=== PATIENT | female | born 1965 | race Caucasian/White ===

== ENCOUNTER 2022-09-16 04:55 | Inpatient (IN) | payer OTHER ==
[~2022-09-16] VITALS: Ht 162.6 cm; Wt 88.9 kg
[2022-09-16] MEDS ORDERED: MIDAZOLAM HCL 2 MG/2 ML VIAL (VERSED) ONE ×2 (07:30→11:39)
[2022-09-16] MEDS ORDERED: ONDANSETRON HCL 4 MG/2 ML VIAL ONE (07:30)
[2022-09-16] MEDS ORDERED: DESFLURANE 15 MIN GAS INH ONE (07:30)
[2022-09-16] MEDS ORDERED: DEXAMETHASONE SOD PHOSPHATE 4 MG/ML VIAL ONE (07:30)
[2022-09-16] MEDS ORDERED: TRANEXAMIC ACID 1,000 MG/10 ML VIAL ONE (07:30)
[2022-09-16] MEDS ORDERED: BUPIVACAINE /EPINEPHRINE/PF 0.25% 30 ML VIAL ONE (07:30)
[2022-09-16] MEDS ORDERED: VANCOMYCIN HCL 1000 MG/VIAL IV ONE (07:30)
[2022-09-16] MEDS ORDERED: NS IRRIG SOLN 1000 ML IR ONE (07:30)
[2022-09-16] MEDS ORDERED: PROPOFOL 200MG/ 20ML VIAL (DIPRIVAN) IV ONE (07:30)
[2022-09-16] MEDS ORDERED: SUGAMMADEX SODIUM 200 MG/2 ML VIAL IV ONE (07:30)
[2022-09-16] MEDS ORDERED: KETOROLAC TROMETHAMINE 30 MG VIAL ONE (07:30)
[2022-09-16] MEDS ORDERED: ROCURONIUM BROMIDE 10 MG/ML (ZEMURON) ONE (07:30)
[2022-09-16] MEDS ORDERED: fentaNYL CITRATE/PF 100 MCG/2 ML AMP ONE (07:30)
[2022-09-16] MEDS ORDERED: LIDOCAINE 1% 10 MG/ML, 20 ML MDV ONE (07:30)
[2022-09-16] MEDS ORDERED: LR 1,000 ML IV.SOLN IV ONE (07:30)
[2022-09-16] MEDS ORDERED: BUPIVACAINE /PF 0.25% 30 ML VIAL INJ ONE (07:30)
[2022-09-16] MEDS ORDERED: MORPHINE SULFATE 10MG/10ML PF AMP ONE (07:30)
[2022-09-16] MEDS ORDERED: LABETALOL 100 MG/ 20ML VIAL IVP PRN (09:00)
[2022-09-16] MEDS ORDERED: MIDAZOLAM HCL 2 MG/2 ML VIAL (VERSED) IVP PRN (09:00)
[2022-09-16] MEDS ORDERED: HYDROmorphone 1 MG/ML INJ. CARTRIDGE IVP PRN ×4 (09:00→11:00)
[2022-09-16] MEDS ORDERED: MEPERIDINE HCL/PF 25 MG/ML DISP.SYRIN IVP PRN (09:00)
[2022-09-16] MEDS ORDERED: hydrALAZINE HCL 20 MG/ML VIAL IVP PRN (09:00)
[2022-09-16] MEDS ORDERED: METOCLOPRAMIDE HCL 10 MG/2 ML VIAL IVP PRN ×2 (09:00→10:15)
[2022-09-16] MEDS ORDERED: LR 1,000 ML IV SCH (09:00)
[2022-09-16] MEDS ORDERED: ACETAMINOPHEN I.V. 1000 MG 100 ML IV ONE (09:11)
[2022-09-16] MEDS ORDERED: LACTULOSE 20 GM/30 ML UDC PO PRN (10:15)
[2022-09-16] MEDS ORDERED: BISACODYL 10 MG/SUPPOSITORY RC PRN (10:15)
[2022-09-16] MEDS ORDERED: NALOXONE HCL 0.4 MG/ML AMP (NARCAN) IVP PRN ×3 (10:15)
[2022-09-16] MEDS ORDERED: DIPHENHYDRAMINE HCL 25 MG CAPSULE PO PRN (10:15)
[2022-09-16] MEDS: HYDROmorphone 1 MG/ML INJ. CARTRIDGE IVP PRN ×6 (10:28→21:50)
[2022-09-16] MEDS ORDERED: HYDROmorphone 1 MG/ML INJ. CARTRIDGE ONE ×2 (10:29→10:56)
[2022-09-16] MEDS ORDERED: traMADol HCL HCL 50 MG TABLET (ULTRAM) PO PRN (11:00)
[2022-09-16] MEDS ORDERED: oxyCODONE HCL 5 MG TABLET PO PRN (11:00)
[2022-09-16] MEDS ORDERED: LORATADINE 10 MG TABLET PO PRN (11:00)
[2022-09-16] MEDS ORDERED: NAPR-688 PO (11:11)
[2022-09-16] MEDS ORDERED: LEVO112T5 PO (11:11)
[2022-09-16] MEDS ORDERED: OMEP20CA15 PO (11:11)
[2022-09-16] MEDS ORDERED: ZOLM2.5T7 PO (11:11)
[2022-09-16] MEDS ORDERED: LOVA10TA55 PO (11:11)
[2022-09-16] MEDS ORDERED: ZOLMITRIPTAN 2.5 MG PO SCH (11:30)
[2022-09-16] MEDS ORDERED: ONDANSETRON HCL 4 MG/2 ML VIAL IVP PRN (11:45)
[2022-09-16] MEDS ORDERED: ZOLMITRIPTAN 2.5 MG PO PRN (12:00)
--- NOTE | 2022-09-16 12:20 | NUR ---
OPENING NOTE RECEIVED PT FROM PACU NURSE. PT CONT C/O PAIN. PAIN MEDICATION WAS GIVEN RIGHT BEFORE ARRIVING TO [facility] UNIT. APPLIED COLD PRESSURE. PT CAME WITH POLAR CUBE. BREATHING NON-LABORED AND REGULAR. IV SITE REMAIN INTACT AND PATENT. NO IV INFILTRATION OR INFECTION NOTED. AT BEDSIDE. WILL CONT TO MONITOR
[2022-09-16] MEDS: KETOROLAC TROMETHAMINE 10 MG TABLET (TORADOL) PO SCH ×2 (13:57→21:50)
[2022-09-16] MEDS: ACETAMINOPHEN 500 MG TABLET PO SCH ×2 (13:58→21:50)
--- NOTE | 2022-09-16 14:03 | NUR ---
NOTES; PHYSICAL THERAPIST AT THE BEDSIDE, ASSESSING PT.
--- NOTE | 2022-09-16 14:10 | NUR ---
VOIDED X1 WITH ASSISTANCE FROM PInderT AND PT'S . PInderT RECOMMENDS USING BEDPAN.
[2022-09-16] MEDS: ceFAZolin SODIUM 2 GM in D5W 50 ML IV SCH ×2 (15:59→21:35)
--- NOTE | 2022-09-16 17:00 | NUR ---
VOIDED X2. NOTIFIED THIS NURSE THAT HE USED BEDPAN AND PT HAD VOIDED X2.
[2022-09-16 17:18] VITALS: BP_SYST 132
--- NOTE | 2022-09-16 18:22 | NUR ---
NOTES; REFILL ICE AND WATER FOR COOLING MACHINE
--- NOTE | 2022-09-16 19:00 | NUR ---
VOIDED X1. AT THE BEDSIDE ASSISTED PT.
--- NOTE | 2022-09-16 19:20 | NUR ---
CLOSING NOTE; PT RESTING IN BED. BREATHING NON-LABORED AND REGULAR. PROVIDED PAIN MEDICATION ORDERED. IV S/L REMAIN INTACT AND PATENT. NO IV INFILTRATION OR INFECTION NOTED. COOLING MACHINE ON TO RIGHT KNEE. PROVIDED MULTIPLE ICE PACKS. BED IS LOCKED AND AT LOW POSITION. ENDORSED CARE TO MECHANICAL MANAGER NURSE.
--- NOTE | 2022-09-16 19:25 | NUR ---
CHANGE OF SHIFT: endorsed by day shift S/P rt.knee athroplasty today. at bedside. pt.feeling warminthe room,willask to adjust temp. ,asking for electric fan. call light within REACH.
[2022-09-16 20:14] VITALS: BP_SYST 122
--- NOTE | 2022-09-16 20:26 | NUR ---
Paged Sayed s/w Rita.
[2022-09-16] MEDS ORDERED: BISMUTH SUBSALICYLATE 240 ML BOTTLE PO PRN (20:30)
--- NOTE | 2022-09-16 20:30 | NUR ---
NOTES: pt. VS checked. S/P rt.knee total athroplasty, dressing intact with polar carea and wrapped aroung her rt. knee. uses bepan to void. IV site on rt. hand. instructed on use of IS. needs attended.
[2022-09-16] MEDS: SENNOSIDES/DOCUSATE SODIUM 1 TAB TABLET(SENOKOT-S) PO SCH (21:00)
--- NOTE | 2022-09-16 21:50 | NUR ---
NOTES: pt. medicated with IV Dilaudid fro c/o postop rt. knee pain. pt. also have sciatica,, repositioned. call light at bedside.
--- NOTE | 2022-09-17 00:15 | NUR ---
NOTES: repositioned,pulled up in bed, more ice packs given per request. pt. needs attended. safety precautions observed.
[2022-09-17 00:43] VITALS: BP_SYST 120
[2022-09-17] MEDS: HYDROmorphone 1 MG/ML INJ. CARTRIDGE IVP PRN ×6 (01:34→21:22)
--- NOTE | 2022-09-17 01:55 | NUR ---
NOTES: pt. remains awake, c/o rt. knee painn, medicated with IV Dilaudid.
--- NOTE | 2022-09-17 03:40 | NUR ---
NOTES: pt.called for pain medication and told her its too soon.
[2022-09-17] MEDS: KETOROLAC TROMETHAMINE 10 MG TABLET (TORADOL) PO SCH (04:25)
[2022-09-17] MEDS: ACETAMINOPHEN 500 MG TABLET PO SCH ×3 (04:26→21:20)
--- NOTE | 2022-09-17 04:30 | NUR ---
NOTES: pt. woke up and slided down the bed. pulled up and repositioned. medicated with orql pain medications with Toradol and Tylenol ES. condition observed.bed alarm on.
[2022-09-17] MEDS: ceFAZolin SODIUM 2 GM in D5W 50 ML IV SCH (05:42)
[2022-09-17 06:57] LABS: HEMATOCRIT 39.6 % (36-48); HEMOGLOBIN 13.6 g/dL (12.0-16.0); MEAN CORPUSCULAR HEMOGLOBIN 32 pg (27-31); MEAN CORPUSCULAR HGB CONC 34 % (32-36); MEAN CORPUSCULAR VOLUME 92 fL (79.0-98.0); PLATELET COUNT (AUTO) 173 K/uL (130-430); RED BLOOD CELL COUNT(AUTO) 4.31 MIL/uL (4.2-6.2); RED CELL DISTRIBUTION WIDTH 13.3 % (9.0-15.0); WHITE BLOOD COUNT (AUTO) 11.6 K/uL (4.8-10.8)
[2022-09-17 07:20] LABS: ALBUMIN 3.3 g/dL (3.4-4.8); CALCIUM 9.8 mg/dL (8.4-11.0); CREATININE 0.8 mg/dL (0.55-1.30); TOTAL BILIRUBIN 0.5 mg/dL (0.0-1.0)
--- NOTE | 2022-09-17 07:30 | NUR ---
RECEIVED REPORT FROM PM NURSE. PATIENT RESTING IN BED, RESPIRATIONS EVEN AND UL ON RA. NO C/O DISCOMFORT. DRESSING TO R KNEE CDI. VSS. CALL LIGHT IN REACH.
[2022-09-17 08:00] VITALS: BP_SYST 134
[2022-09-17] MEDS ORDERED: ACET-2634 PO (08:23)
[2022-09-17] MEDS ORDERED: ASA81 PO (08:23)
[2022-09-17] MEDS ORDERED: DIPHENHYDRAMINE HCL 12.5 MG/5 ML UDC PO ONE (08:30)
[2022-09-17] MEDS: SENNOSIDES/DOCUSATE SODIUM 1 TAB TABLET(SENOKOT-S) PO SCH ×2 (09:00→21:20)
[2022-09-17] MEDS: SIMVASTATIN 20 MG TABLET PO SCH (09:34)
[2022-09-17] MEDS: ASPIRIN 81 MG TAB.CHEW PO SCH ×2 (09:34→21:20)
[2022-09-17] MEDS: LEVOTHYROXINE SODIUM 0.112 MG TABLET PO SCH (09:34)
[2022-09-17] MEDS: DECADRON 4 MG TABLET PO SCH (09:35)
[2022-09-17 11:12] LABS: BAND % (MANUAL) 2 % (0-6); BASOPHILS % (AUTO) 0.1 % (0.0-2.0); EOSINOPHILS % (AUTO) 0.1 % (0.0-4.0); EOSINOPHILS % (MANUAL) 4 % (0-7); LYMPHOCYTES # (AUTO) 1.6 K/uL (1.0-5.5); LYMPHOCYTES % (AUTO) 13.9 % (20.5-51.5); LYMPHOCYTES % (MANUAL) 9 % (20-46); MONOCYTES % (AUTO) 8.7 % (1.7-9.3); NEUTROPHILS % (AUTO) 77.2 % (40.0-70.0)
[2022-09-17 11:13] LABS: BASOPHILS % (MANUAL) 4 % (0-2); MONOCYTES % (MANUAL) 2 % (0-11)
[2022-09-17] MEDS: CELECOXIB 200 MG CAPSULE PO SCH ×2 (11:48→22:27)
[2022-09-17] MEDS: cephALEXin 250 MG CAPSULE PO SCH ×2 (14:09→21:22)
--- NOTE | 2022-09-17 15:26 | NUR ---
CLARIFIED WITH HCP/[facility] IRASEMA PALUMBOY, RE: DME - [facility]. PER CM, PT HAD A LEVON WALKER LAST SEP 2021. SHE SENT THE ORDER OF ORTHO MD DR HOOK FOR REVIEW BY [facility]. REQUEST FOR SIMILAR DME'S CAN BE GRANTED ONCE EVERY 5 YEARS. INFORMED ORTHO OF THE INFO GIVEN BY [facility]ILLAL[facility] MS ANILA.
--- NOTE | 2022-09-17 15:30 | NUR ---
PATIENT RESTING IN BED, AAO x4, RESPIRATIONS EVEN AND UL, NO C/O PAIN AT THIS TIME. DRESSING TO R KNEE CDI. ALL NEEDS MET. CALL LIGHT IN REACH. AT BEDSIDE.
--- NOTE | 2022-09-17 18:24 | NUR ---
PATIENT SITTING IN BED, EATING DINNER, NO C/O PAIN/DISCOMFORT AT THIS TIME. RESPIRATIONS EVEN AND UL ON RA. DRESSING TO R KNEE CDI. NO SIGNIFICANT CHANGES NOTED THROUGHOUT SHIFT. ALL NEEDS MET. BED IN LOW, SIDE RAILS x2, CALL LIGHT IN REACH. WILL CONT TO MONITOR AND ENDORSE TO PM NURSE. AT BEDSIDE.
[2022-09-17 18:37] VITALS: BP_SYST 128; BP_SYST 143
[2022-09-17 20:00] VITALS: BP_SYST 137
[2022-09-18 00:11] VITALS: BP_SYST 152
[2022-09-18] MEDS: HYDROmorphone 1 MG/ML INJ. CARTRIDGE IVP PRN ×5 (04:27→17:55)
[2022-09-18] MEDS: LEVOTHYROXINE SODIUM 0.112 MG TABLET PO SCH (06:40)
[2022-09-18] MEDS: ACETAMINOPHEN 500 MG TABLET PO SCH ×3 (06:42→21:10)
[2022-09-18] MEDS: oxyCODONE HCL 5 MG TABLET PO PRN (06:42)
[2022-09-18] MEDS ORDERED: OXYIR5 PO (07:36)
[2022-09-18] MEDS ORDERED: CEFA250S32 PO (07:36)
--- NOTE | 2022-09-18 07:50 | NUR ---
PHYSICAL THERAPY CO-SIGN The Physical Therapy Progress Notes documented by Hardboard Coating Machine Operator have been reviewed. Reviewed/Co-Signed by: Anupam Gan Documentation Done by:RAJINDER WHEELER Addendum: 09/18/22 at 0750 by Anupam Gan PT Amended: Links added.
[2022-09-18 08:32] VITALS: BP_SYST 154
[2022-09-18] MEDS: ASPIRIN 81 MG TAB.CHEW PO SCH ×2 (09:15→21:10)
[2022-09-18] MEDS: SENNOSIDES/DOCUSATE SODIUM 1 TAB TABLET(SENOKOT-S) PO SCH ×2 (09:15→21:10)
[2022-09-18] MEDS: SIMVASTATIN 20 MG TABLET PO SCH (09:16)
[2022-09-18] MEDS: DECADRON 4 MG TABLET PO SCH (09:17)
[2022-09-18] MEDS: cephALEXin 250 MG CAPSULE PO SCH (09:17)
--- NOTE | 2022-09-18 09:56 | NUR ---
[facility]/HCP CM MS HIGH WAS INFORMED OF THE NEW ORDER FOR SNF PLACEMENT. SHE WILL CALL ONCE A SNF IS ARRANGED.
--- NOTE | 2022-09-18 10:43 | NUR ---
PT'S AT BEDSIDE. ASSISTED PULLING UP THE PT.
[2022-09-18] MEDS: CELECOXIB 200 MG CAPSULE PO SCH ×2 (11:15→22:05)
--- NOTE | 2022-09-18 11:18 | NUR ---
[place]. WORKING WITH PT AT THIS TIME.
[2022-09-18] MEDS: cephALEXin 500 MG CAPSULE PO SCH ×2 (15:34→21:10)
--- NOTE | 2022-09-18 15:52 | NUR ---
A FOLLOW UP CALL WAS MADE TO [facility]/HCP CM MS HIGH, RE: SNF PLACEMENT. SHE DID NOT ANSWER BUT LEFT HER A VOICE MESSAGE TO RETURN THE CALL PER DR HOOK'S ORDER.
--- NOTE | 2022-09-18 16:23 | NUR ---
PER [facility]/HCP CM MS HIGH PT IS CLINICALLY ACCEPTED AT [facility] BY [facility]. TRANSFER TO THE FACILITY WILL BE TOMORROW 09/19/22. IRASEMA HIGH WILL ENDORSE THE TRANSFER PROCESS TO [facility] FOR THE WEEKEND.
[2022-09-18 17:03] VITALS: BP_SYST 153
--- NOTE | 2022-09-18 18:30 | NUR ---
PATIENT HAS BEEN STABLE THE WHOLE SHIFT, NO FEVER. ASSISTED BY FAMILY TO COMMODE. GIVEN PAIN MEDS PRN.
[2022-09-19 00:49] VITALS: BP_SYST 151
[2022-09-19] MEDS: oxyCODONE HCL 5 MG TABLET PO PRN ×3 (02:44→15:59)
[2022-09-19] MEDS: LEVOTHYROXINE SODIUM 0.112 MG TABLET PO SCH (07:10)
[2022-09-19] MEDS: ACETAMINOPHEN 500 MG TABLET PO SCH ×2 (07:10→14:39)
--- NOTE | 2022-09-19 07:40 | NUR ---
OPENING NOTE Patient resting in bed with Cryo Ice on Right knee surgery site. A/O x 4, Irish speaking. Patient Breathing even and unlabored on RA saturations at 98%. NO pain, no distress, no SOB. Patient on Regular diet. Patient has IV to Right hand 18G, patent on NS SL. Bed is locked in lowest position. Call light within reach, all needs met, will continue to monitor.
[2022-09-19 08:00] VITALS: BP_SYST 149
[2022-09-19] MEDS: DECADRON 4 MG TABLET PO SCH (09:15)
[2022-09-19] MEDS: ASPIRIN 81 MG TAB.CHEW PO SCH (09:15)
[2022-09-19] MEDS: SIMVASTATIN 20 MG TABLET PO SCH (09:15)
[2022-09-19] MEDS: cephALEXin 500 MG CAPSULE PO SCH ×2 (09:16→15:58)
[2022-09-19] MEDS: SENNOSIDES/DOCUSATE SODIUM 1 TAB TABLET(SENOKOT-S) PO SCH (09:16)
--- NOTE | 2022-09-19 10:13 | NUR ---
Daughter Daughter called to ask what facility her mom will going to and informed her that she will be going [facility].
[2022-09-19] MEDS: CELECOXIB 200 MG CAPSULE PO SCH (10:42)
--- NOTE | 2022-09-19 11:01 | NUR ---
patient discharging to [facility] room [address] [place] [address] [phone] [facility] will continuous pickling line pickler 5:30PM [phone] auth# [id number] called the floor spoke with Ramonita provided continuous pickling line pickler time and facility
--- NOTE | 2022-09-19 11:18 | NUR ---
[facility] ARRANGED SNF PLACEMENT WITH [facility] AND TRANSPORT WITH [facility]. INFO WAS RELAYED TO NURSE, GAEL.
[2022-09-19 12:10] VITALS: BP_SYST 149
--- NOTE | 2022-09-19 12:10 | NUR ---
ROUNDS: Patient resting in bed with and with Cryo Ice on Right knee surgery site. Patient Breathing even and unlabored on RA saturations at 98%. NO pain, no distress, no SOB. Bed is locked in lowest position. Call light within reach, all needs met, will continue to monitor.
--- NOTE | 2022-09-19 13:06 | NUR ---
[facility] Spoke with ARELI Echeverria and gave report. Patient will be transferred to [facility] at 1730.
[2022-09-19 14:48] VITALS: BP_SYST 149
[2022-09-19 16:10] VITALS: BP_SYST 148
--- NOTE | 2022-09-19 18:44 | NUR ---
D/C Patient Patient given medication reconciliation form and D/C instructions. Exit Care provided. Patient verbalized understanding. MD Sol discussed with patient the results and treatment provided. [facility]. Report given to ARELI Echeverria at [facility]. Patient in stable condition, ID band removed. IV catheter removed, intact and dressing applied, no active bleeding. Patient educated on pain management. All belongings sent with patient.
--- NOTE | 2022-09-21 15:14 | NUR ---
PHYSICAL THERAPY CO-SIGN The Physical Therapy Progress Notes documented by Erp Project Manager have been reviewed. Reviewed/Co-Signed by: Anupam Gan Documentation Done by:RAJINDER WHEELER Addendum: 09/21/22 at 1515 by Anupam Gan PT Amended: Links added.
== END 2022-09-19 18:49 | DRG 470 ==
LOC: SMU 04:55
PROVIDERS: ADMIT Student in an Organized Health Care Education/Training Program; ATTEND Student in an Organized Health Care Education/Training Program
PROC: 0SRC0J9 Replacement of Right Knee Joint with Synthetic Substitute, Cemented, Open Approach (ICD-10-PCS; principal; 2022-09-17)
DX: M17.11 Unilateral primary osteoarthritis, right knee (principal); Z20.822 Contact with and (suspected) exposure to COVID-19
CPT/HCPCS: 36415; 73560-TC; 80053; 85007; 85027; 87081; 88305; 88311; 96379; 97110-GP; 97112-GP; 97116-GP; 97163-GP; 97530-GP; J0131; J0690; J1100; J1170; J1885; J2001; J2274; J2405; J2704; J3010; J3370; J3465; J3490; J7060; J7120; J8540; U0003

== ENCOUNTER 2023-07-26 06:56 | Inpatient (IN) | payer OTHER ==
[~2023-07-26] VITALS: Ht 152.4 cm; Wt 88.9 kg
[~2023-07-26 06:56] MED LIST: ACET-2634 PO; ASA81 PO; CEFA250S32 PO; LEVO112T5 PO; LOVA10TA55 PO; OMEP20CA15 PO; OXYIR5 PO; ZOLM2.5T7 PO
[2023-07-26] MEDS ORDERED: CEFAZOLIN 2 GM IVPB PREMIX 50 ML IV ONE (07:00)
[2023-07-26] MEDS ORDERED: CELECOXIB 100 MG CAPSULE PO ONE (07:00)
[2023-07-26] MEDS ORDERED: VANCOMYCIN HCL 1,250 MG in NS 250 ML IV ONE (07:00)
[2023-07-26] MEDS ORDERED: ACETAMINOPHEN 500 MG TABLET PO ONE (07:00)
[2023-07-26] MEDS ORDERED: oxyCODONE HCL 10 MG TAB.ER.12H PO ONE ×2 (07:00→07:31)
[2023-07-26] MEDS ORDERED: CELECOXIB 100 MG CAPSULE ONE (07:26)
[2023-07-26] MEDS ORDERED: ACETAMINOPHEN 500 MG TABLET ONE (07:26)
[2023-07-26] MEDS ORDERED: GABAPENTIN 300 MG CAPSULE ONE (07:31)
[2023-07-26] MEDS ORDERED: NS IRRIG SOLN 1000 ML IR ONE (07:45)
[2023-07-26] MEDS ORDERED: ONDANSETRON HCL 4 MG/2 ML VIAL ONE (07:45)
[2023-07-26] MEDS ORDERED: BUPIVACAINE /PF 0.25% 30 ML VIAL INJ ONE (07:45)
[2023-07-26] MEDS ORDERED: KETOROLAC TROMETHAMINE 30 MG VIAL ONE (07:45)
[2023-07-26] MEDS ORDERED: DESFLURANE 15 MIN GAS INH ONE (07:45)
[2023-07-26] MEDS ORDERED: MIDAZOLAM HCL 5 MG/ML VIAL (VERSED) IV ONE (07:45)
[2023-07-26] MEDS ORDERED: fentaNYL CITRATE/PF 100 MCG/2 ML AMP ONE (07:45)
[2023-07-26] MEDS ORDERED: DEXAMETHASONE SOD PHOSPHATE 4 MG/ML VIAL ONE (07:45)
[2023-07-26] MEDS ORDERED: LR 1,000 ML IV.SOLN IV ONE (07:45)
[2023-07-26] MEDS ORDERED: WATER FOR IRRIGATION,STERILE 1,000 ML IRRIG.SOLN IR ONE (07:45)
[2023-07-26] MEDS ORDERED: ROCURONIUM BROMIDE 10 MG/ML (ZEMURON) ONE (07:45)
[2023-07-26] MEDS ORDERED: SUGAMMADEX SODIUM 200 MG/2 ML VIAL IV ONE (07:45)
[2023-07-26] MEDS ORDERED: TRANEXAMIC ACID 1,000 MG/10 ML VIAL ONE (07:45)
[2023-07-26] MEDS ORDERED: GABAPENTIN 300 MG CAPSULE PO ONE (08:00)
[2023-07-26] MEDS ORDERED: METOCLOPRAMIDE HCL 10 MG/2 ML VIAL IVP PRN ×2 (08:45→10:45)
[2023-07-26] MEDS ORDERED: LR 1,000 ML IV SCH (08:45)
[2023-07-26] MEDS ORDERED: HYDROmorphone 1 MG/ML INJ. CARTRIDGE IVP PRN ×4 (08:45→11:00)
[2023-07-26] MEDS ORDERED: MEPERIDINE HCL/PF 25 MG/ML DISP.SYRIN IVP PRN (08:45)
[2023-07-26] MEDS ORDERED: hydrALAZINE HCL 20 MG/ML VIAL IVP PRN (08:45)
[2023-07-26] MEDS ORDERED: LABETALOL 100 MG/ 20ML VIAL IVP PRN (08:45)
[2023-07-26] MEDS ORDERED: MIDAZOLAM HCL 2 MG/2 ML VIAL (VERSED) IVP PRN (08:45)
[2023-07-26] MEDS ORDERED: MIDAZOLAM HCL 2 MG/2 ML VIAL (VERSED) ONE (10:20)
[2023-07-26] MEDS ORDERED: HYDROmorphone 1 MG/ML INJ. CARTRIDGE ONE (10:34)
[2023-07-26] MEDS: HYDROmorphone 1 MG/ML INJ. CARTRIDGE IVP PRN ×2 (10:36→10:56)
[2023-07-26] MEDS ORDERED: DIPHENHYDRAMINE HCL 25 MG CAPSULE PO PRN (10:45)
[2023-07-26] MEDS ORDERED: NALOXONE HCL 0.4 MG/ML AMP (NARCAN) IVP PRN ×3 (10:45)
[2023-07-26] MEDS ORDERED: LACTULOSE 20 GM/30 ML UDC PO PRN (10:45)
[2023-07-26] MEDS ORDERED: BISACODYL 10 MG/SUPPOSITORY RC PRN (10:45)
[2023-07-26] MEDS ORDERED: OMEP20CA15 PO (10:53)
[2023-07-26] MEDS ORDERED: MULT-439 PO (10:53)
[2023-07-26] MEDS ORDERED: CRAN450T9 PO (10:53)
[2023-07-26] MEDS ORDERED: NAPR-688 PO (10:53)
[2023-07-26] MEDS ORDERED: LEVO112T2 PO (10:53)
[2023-07-26] MEDS ORDERED: GLUC-119 PO (10:53)
[2023-07-26] MEDS ORDERED: LOVA40TA75 PO (10:53)
[2023-07-26] MEDS ORDERED: BIOT25008 PO (10:53)
[2023-07-26] MEDS ORDERED: LORATADINE 10 MG TABLET PO PRN (11:00)
[2023-07-26] MEDS ORDERED: traMADol HCL HCL 50 MG TABLET (ULTRAM) PO PRN (11:00)
[2023-07-26 11:45] VITALS: BP_SYST 139; PULSE 94; RESP 18; TEMP 97.3; O2SAT 96
[2023-07-26] MEDS ORDERED: ONDANSETRON HCL 4 MG/2 ML VIAL IVP PRN (11:45)
[2023-07-26 11:57] LABS: ALBUMIN 4.1 g/dL (3.4-4.8); CALCIUM 9.7 mg/dL (8.4-11.0); CREATININE 0.9 mg/dL (0.55-1.30); POTASSIUM 4.4 mmol/L (3.5-5.1); TOTAL BILIRUBIN 0.4 mg/dL (0.0-1.0); TOTAL PROTEIN, SERUM 7.5 g/dL (6.4-8.3)
[2023-07-26 12:00] VITALS: BP_SYST 139; PULSE 94; RESP 18; TEMP 97.3
[2023-07-26] MEDS: ceFAZolin SODIUM 2 GM in D5W 50 ML IV SCH ×2 (13:40→21:35)
[2023-07-26] MEDS: ACETAMINOPHEN 500 MG TABLET PO SCH ×2 (13:41→22:00)
[2023-07-26] MEDS: KETOROLAC TROMETHAMINE 10 MG TABLET (TORADOL) PO SCH ×2 (14:46→22:00)
[2023-07-26] MEDS: oxyCODONE HCL 5 MG TABLET PO PRN ×2 (18:43→23:20)
[2023-07-26 20:00] VITALS: BP_SYST 112; PULSE 92; RESP 20; TEMP 98.1; O2SAT 97
[2023-07-26] MEDS: SENNOSIDES/DOCUSATE SODIUM 1 TAB TABLET(SENOKOT-S) PO SCH (21:00)
[2023-07-26] MEDS: VANCOMYCIN HCL 1,000 MG in NS 250 ML IV SCH (22:59)
[2023-07-26 23:47] VITALS: O2SAT 97
[2023-07-27] VITALS: BP_SYST 123; PULSE 94; RESP 18; TEMP 98; O2SAT 98
[2023-07-27 02:07] VITALS: BP_SYST 112; PULSE 92; RESP 20; TEMP 98.1; O2SAT 97
[2023-07-27] MEDS: oxyCODONE HCL 5 MG TABLET PO PRN ×5 (03:49→22:59)
[2023-07-27] MEDS: ceFAZolin SODIUM 2 GM in D5W 50 ML IV SCH (05:40)
[2023-07-27] MEDS: LEVOTHYROXINE SODIUM 0.112 MG TABLET PO SCH (06:05)
[2023-07-27 06:34] LABS: ALBUMIN 3.1 g/dL (3.4-4.8); CALCIUM 9.5 mg/dL (8.4-11.0); CREATININE 0.78 mg/dL (0.55-1.30); POTASSIUM 3.4 mmol/L (3.5-5.1); TOTAL BILIRUBIN 0.3 mg/dL (0.0-1.0); TOTAL PROTEIN, SERUM 6.2 g/dL (6.4-8.3)
[2023-07-27 07:48] LABS: HEMATOCRIT 37.2 % (36-48); HEMOGLOBIN 12.3 g/dL (12.0-16.0)
[2023-07-27 08:00] VITALS: BP_SYST 126; PULSE 82; RESP 18; TEMP 96.1; O2SAT 100; O2SAT 99
[2023-07-27] MEDS ORDERED: OMEPRAZOLE Non-Formulary 20 MG CAPSULE.DR PO SCH (09:00)
[2023-07-27] MEDS: SENNOSIDES/DOCUSATE SODIUM 1 TAB TABLET(SENOKOT-S) PO SCH ×2 (09:00→21:00)
[2023-07-27] MEDS: PANTOPRAZOLE SODIUM 40 MG TAB PO SCH (09:38)
[2023-07-27] MEDS: VANCOMYCIN HCL 1,000 MG in NS 250 ML IV SCH ×2 (09:40→22:24)
[2023-07-27 11:18] VITALS: BP_SYST 132; PULSE 86; RESP 16; TEMP 96.9; O2SAT 97
[2023-07-27] MEDS: CELECOXIB 200 MG CAPSULE PO SCH ×2 (11:32→22:58)
[2023-07-27 12:05] LABS: BASOPHILS % (AUTO) 0.3 % (0.0-2.0); EOSINOPHILS # (AUTO) 0.1 K/uL (0.0-0.4); EOSINOPHILS % (AUTO) 0.7 % (0.0-4.0); LYMPHOCYTES # (AUTO) 1.4 K/uL (1.0-5.5); MEAN CORPUSCULAR HGB CONC 33 % (32-36); RED CELL DISTRIBUTION WIDTH 13.6 % (9.0-15.0)
[2023-07-27 12:09] LABS: HEMATOCRIT 39.4 % (36-48); HEMOGLOBIN 12.9 g/dL (12.0-16.0); LYMPHOCYTES % (AUTO) 15.6 % (20.5-51.5); MEAN CORPUSCULAR HEMOGLOBIN 31 pg (27-31); MEAN CORPUSCULAR VOLUME 94 fL (79.0-98.0); MONOCYTES # (AUTO) 0.6 K/uL (0.0-1.0); MONOCYTES % (AUTO) 6.6 % (1.7-9.3); NEUTROPHILS # (AUTO) 6.9 K/uL (1.8-7.7); NEUTROPHILS % (AUTO) 76.8 % (40.0-70.0); PLATELET COUNT (AUTO) 181 K/uL (130-430)
[2023-07-27] MEDS: ACETAMINOPHEN 500 MG TABLET PO SCH ×2 (14:00→22:00)
[2023-07-27 15:22] VITALS: BP_SYST 123; PULSE 74; RESP 16; TEMP 96.4; O2SAT 96
[2023-07-27 19:14] LABS: PROTHROMBIN TIME 10.2 SECS (9.5-12.5)
[2023-07-27 20:10] VITALS: O2SAT 95
[2023-07-27] MEDS ORDERED: POTASSIUM CHLORIDE 20 MEQ TABLET.ER PO ONE (21:00)
[2023-07-27] MEDS ORDERED: LORazepam 1 MG TABLET PO PRN (21:15)
[2023-07-27] MEDS: ASPIRIN 81 MG TAB.CHEW PO SCH (21:38)
[2023-07-28 00:34] VITALS: BP_SYST 129; PULSE 92; RESP 18; TEMP 97.6; O2SAT 98
[2023-07-28] MEDS: ACETAMINOPHEN 500 MG TABLET PO SCH ×2 (05:12→14:00)
[2023-07-28] MEDS: LEVOTHYROXINE SODIUM 0.112 MG TABLET PO SCH (06:27)
[2023-07-28] MEDS: oxyCODONE HCL 5 MG TABLET PO PRN ×2 (06:28→14:09)
[2023-07-28 07:57] VITALS: BP_SYST 132; PULSE 83; RESP 18; TEMP 98; O2SAT 98
[2023-07-28] MEDS: SENNOSIDES/DOCUSATE SODIUM 1 TAB TABLET(SENOKOT-S) PO SCH (08:28)
[2023-07-28] MEDS: ASPIRIN 81 MG TAB.CHEW PO SCH (08:28)
[2023-07-28] MEDS: PANTOPRAZOLE SODIUM 40 MG TAB PO SCH (08:28)
[2023-07-28] MEDS: VANCOMYCIN HCL 1,000 MG in NS 250 ML IV SCH (08:43)
[2023-07-28] MEDS ORDERED: FLUCONAZOLE 100 MG TABLET (DIFLUCAN) PO SCH (09:00)
[2023-07-28] MEDS: CELECOXIB 200 MG CAPSULE PO SCH (10:49)
[2023-07-28 10:50] VITALS: O2SAT 97
[2023-07-28 11:04] VITALS: BP_SYST 141; PULSE 84; RESP 16; TEMP 97; O2SAT 100
[2023-07-28] MEDS ORDERED: DAPT500V3 IV (14:47)
[2023-07-28 15:26] VITALS: BP_SYST 138; PULSE 81; RESP 18; TEMP 98.1; O2SAT 98
== END 2023-07-28 17:30 | disposition home or self-care (01) | DRG 493 ==
LOC: SMU 06:56 → EDSTATUS 09:30 → SMU 11:26
PROVIDERS: ADMIT Orthopaedic Surgery Sports Medicine; ATTEND Orthopaedic Surgery Sports Medicine
PROC: 0PBD0ZZ Excision of Left Humeral Head, Open Approach (ICD-10-PCS; 2023-07-26)
PROC: 0RPK0JZ Removal of Synthetic Substitute from Left Shoulder Joint, Open Approach (ICD-10-PCS; principal; 2023-07-26 07:56)
PROC: 02HV33Z Insertion of Infusion Device into Superior Vena Cava, Percutaneous Approach (ICD-10-PCS; 2023-07-27)
PROC: B548ZZA Ultrasonography of Superior Vena Cava, Guidance (ICD-10-PCS; 2023-07-27)
DX: T84.611A Infection and inflammatory reaction due to internal fixation device of left humerus, initial encounter (principal); S42.202K Unspecified fracture of upper end of left humerus, subsequent encounter for fracture with nonunion; T81.49XA Infection following a procedure, other surgical site, initial encounter; E03.9 Hypothyroidism, unspecified; F41.9 Anxiety disorder, unspecified; Y83.1 Surgical operation with implant of artificial internal device as the cause of abnormal reaction of the patient, or of later complication, without mention of misadventure at the time of the procedure; E66.9 Obesity, unspecified; X58.XXXD Exposure to other specified factors, subsequent encounter; Z68.38 Body mass index [BMI] 38.0-38.9, adult; Y92.89 Other specified places as the place of occurrence of the external cause
CPT/HCPCS: 36415; 71045; 76001; 80053; 80202; 83051; 85014; 85025; 85610-TC; 85651-TC; 85730-TC; 87040; 87070-TC; 87075-TC; 87081; 87101; 88300; 88304; 88305; 88311; 96379; C1713; J0690; J1100; J1170; J1885; J2250; J2405; J3010; J3370; J3465; J3490; J7050; J7060; J7120

== ENCOUNTER 2023-09-16 05:10 | Inpatient (IN) | payer OTHER ==
[~2023-09-16] VITALS: Ht 162.6 cm; Wt 88.9 kg
[~2023-09-16 05:10] MED LIST changes: +BIOT25008 PO; -CEFA250S32 PO; +CRAN450T9 PO; +DAPT500V3 IV; +GLUC-119 PO; +LEVO112T2 PO; +LOVA40TA75 PO; +MULT-439 PO; +NAPR-688 PO
[2023-09-16] MEDS ORDERED: ACETAMINOPHEN 500 MG TABLET ONE (05:20)
[2023-09-16] MEDS: ACETAMINOPHEN 500 MG TABLET PO ONE (05:58)
[2023-09-16] MEDS ORDERED: VANCOMYCIN HCL 1,000 MG in NS 250 ML IV ONE (06:00)
[2023-09-16] MEDS ORDERED: CEFAZOLIN SOD 2 GM in D5W 50 ML IV ONE (06:00)
[2023-09-16] MEDS ORDERED: BUPIVACAINE /PF 0.25% 30 ML VIAL INJ ONE (07:20)
[2023-09-16] MEDS ORDERED: ePHEDrine sulfate 50 MG/ML VIAL ONE (07:20)
[2023-09-16] MEDS ORDERED: ROPIVACAINE HCL/PF 5 MG/ML 0.5% 30 ML VIAL ONE (07:20)
[2023-09-16] MEDS ORDERED: WATER FOR IRRIGATION,STERILE 1,000 ML IRRIG.SOLN IR ONE (07:20)
[2023-09-16] MEDS ORDERED: SUGAMMADEX SODIUM 200 MG/2 ML VIAL IV ONE (07:20)
[2023-09-16] MEDS ORDERED: NS IRRIG SOLN 1000 ML IR ONE (07:20)
[2023-09-16] MEDS ORDERED: PHENYLEPHRINE HCL 10 MG/ML VIAL (NEOSYNEPHRINE) ONE (07:20)
[2023-09-16] MEDS ORDERED: SEVOFLURANE 15 MIN GAS INH ONE (07:20)
[2023-09-16] MEDS ORDERED: PROPOFOL 200MG/ 20ML VIAL (DIPRIVAN) IV ONE (07:20)
[2023-09-16] MEDS ORDERED: ROCURONIUM BROMIDE 10 MG/ML (ZEMURON) ONE (07:20)
[2023-09-16] MEDS ORDERED: VANCOMYCIN HCL 1000 MG/VIAL IV ONE (07:20)
[2023-09-16] MEDS ORDERED: LIDOCAINE 1% 10 MG/ML, 20 ML MDV ONE (07:20)
[2023-09-16] MEDS ORDERED: ONDANSETRON HCL 4 MG/2 ML VIAL ONE (07:20)
[2023-09-16] MEDS ORDERED: LR 1,000 ML IV.SOLN IV ONE (07:20)
[2023-09-16] MEDS ORDERED: fentaNYL CITRATE/PF 100 MCG/2 ML AMP ONE ×2 (07:26→09:48)
[2023-09-16] MEDS ORDERED: MIDAZOLAM HCL 2 MG/2 ML VIAL (VERSED) ONE (07:27)
[2023-09-16] MEDS ORDERED: HYDROmorphone 1 MG/ML INJ. CARTRIDGE IVP PRN ×4 (11:00→11:15)
[2023-09-16] MEDS ORDERED: traMADol HCL HCL 50 MG TABLET (ULTRAM) PO PRN (11:00)
[2023-09-16] MEDS ORDERED: LORATADINE 10 MG TABLET PO PRN (11:00)
[2023-09-16] MEDS ORDERED: NALOXONE HCL 0.4 MG/ML AMP (NARCAN) IVP PRN ×7 (11:15→11:30)
[2023-09-16] MEDS ORDERED: ONDANSETRON HCL 4 MG/2 ML VIAL IVP PRN ×2 (11:15→11:45)
[2023-09-16] MEDS ORDERED: hydrALAZINE HCL 20 MG/ML VIAL IV PRN (11:15)
[2023-09-16] MEDS ORDERED: HYDROmorphone 1 MG/ML INJ. CARTRIDGE ONE (11:24)
[2023-09-16] MEDS: HYDROmorphone 1 MG/ML INJ. CARTRIDGE IVP PRN ×2 (11:27→12:15)
[2023-09-16] MEDS ORDERED: METOCLOPRAMIDE HCL 10 MG/2 ML VIAL IVP PRN (11:30)
[2023-09-16] MEDS ORDERED: DIPHENHYDRAMINE HCL 25 MG CAPSULE PO PRN (11:30)
[2023-09-16] MEDS ORDERED: LACTULOSE 20 GM/30 ML UDC PO PRN (11:30)
[2023-09-16] MEDS ORDERED: BISACODYL 10 MG/SUPPOSITORY RC PRN (11:30)
[2023-09-16] MEDS ORDERED: LORA10TA7 PO (11:31)
[2023-09-16] MEDS ORDERED: METH-634 PO (11:31)
[2023-09-16] MEDS ORDERED: [UNRECOGNIZED DRUG - CODE] PO (11:31)
[2023-09-16] MEDS ORDERED: VITD400 PO (11:31)
[2023-09-16] MEDS ORDERED: LOVA40TA75 PO (11:31)
[2023-09-16] MEDS ORDERED: LEVO125T8 PO (11:31)
[2023-09-16 14:30] VITALS: BP_SYST 116; PULSE 96; RESP 16; TEMP 97.6; O2SAT 98
[2023-09-16] MEDS: KETOROLAC TROMETHAMINE 10 MG TABLET (TORADOL) PO SCH (15:00)
[2023-09-16] MEDS: ACETAMINOPHEN 500 MG TABLET PO SCH (15:00)
[2023-09-16] MEDS ORDERED: ceFAZolin SODIUM 2 GM in D5W 50 ML IV SCH (15:00)
[2023-09-16] MEDS: oxyCODONE HCL 5 MG TABLET PO PRN ×2 (16:10→20:13)
[2023-09-16] MEDS: ceFAZolin SODIUM 2 GM in D5W 50 ML IV SCH (18:49)
[2023-09-16 19:09] VITALS: BP_SYST 116; PULSE 98; RESP 15; TEMP 96.9
[2023-09-16 20:00] VITALS: BP_SYST 114; PULSE 91; RESP 18; TEMP 98.2; O2SAT 98
[2023-09-16] MEDS: SENNOSIDES/DOCUSATE SODIUM 1 TAB TABLET(SENOKOT-S) PO SCH (21:00)
[2023-09-16] MEDS: LORazepam 1 MG TABLET PO ONE (23:58)
[2023-09-17] VITALS: BP_SYST 120; PULSE 94; RESP 18; TEMP 98.6; O2SAT 98
[2023-09-17 08:12] LABS: HEMATOCRIT 35.6 % (36-48); HEMOGLOBIN 12.2 g/dL (12.0-16.0)
[2023-09-17 08:19] VITALS: BP_SYST 99; PULSE 98; RESP 15; TEMP 98.2; O2SAT 100
[2023-09-17] MEDS: CELECOXIB 100 MG CAPSULE PO SCH (10:24)
[2023-09-17 11:38] VITALS: BP_SYST 102; PULSE 98; RESP 15; TEMP 97.4; O2SAT 98
== END 2023-09-17 12:51 | disposition home or self-care (01) | DRG 483 ==
LOC: SMU 05:10
PROVIDERS: ADMIT Orthopaedic Surgery Sports Medicine; ATTEND Orthopaedic Surgery Sports Medicine
PROC: 0RPK0JZ Removal of Synthetic Substitute from Left Shoulder Joint, Open Approach (ICD-10-PCS; 2023-09-16)
PROC: 0RRK00Z Replacement of Left Shoulder Joint with Reverse Ball and Socket Synthetic Substitute, Open Approach (ICD-10-PCS; principal; 2023-09-16 07:35)
DX: S42.202K Unspecified fracture of upper end of left humerus, subsequent encounter for fracture with nonunion (principal); W18.39XD Other fall on same level, subsequent encounter
CPT/HCPCS: 36415; 76001; 83051; 85014; 87081; 88305; 88311; 96379; A4649; C1776; J0690; J1170; J2001; J2370; J2405; J2704; J3010; J3370; J3465; J3490; J7050; J7060; J7120